=== PATIENT | male | born 1985 | race Caucasian/White ===

== ENCOUNTER 2019-03-14 12:59 | Emergency (ER) | payer SELFPAY ==
--- NOTE | ~2019-03-14 | XR_ITS ---
EXAMINATION: XR shoulder RT min 2V INDICATION: Right shoulder pain after fall TECHNIQUE: Four views of the right shoulder are submitted. COMPARISON: None FINDINGS: Normal alignment. No fracture. The glenohumeral joint is normal. There is mild separation a t the acromioclavicular joint. Soft tissues are unremarkable. IMPRESSION: Mild separation at the acromioclavicular joint without acute osseous abnormality. Reviewed, dictated and finalized at location A. [employer] IMPRESSION: Mild separation at the acromioclavicular joint without acute osseous abnormalit y.
[2019-03-14 13:02] VITALS: BP 145/64; PULSE 55; RESP 18; TEMP 36.6; O2SAT 100
--- NOTE | 2019-03-14 14:13 | ED.UPPEXIN ---
HPI - Extremity Injury (Upper) General Chief Complaint: Extremity Injury, Upper <Tyrone Fierro PA-C - Last Filed: 03/14/19 14:22> Stated Complaint: FELL WEDNESDAY - RT SHOULDER PAIN <KENIA Perez Last Filed: 03/14/19 14:22> Time Seen by Provider: 03/14/19 13:31 <Tyrone Fierro PA-C - Last Filed: 03/14/19 14:22> Source: patient <KENIA Perez Last Filed: 03/14/19 14:22> Mode of arrival: ambulatory <KENIA Perez Last Filed: 03/14/19 14:22> Limitations: no limitations <Tyrone Fierro PA-C - Last Filed: 03/14/19 14:22> History of Present Illness HPI narrative: Patient presents with chief complaint of anterior shoulder pain that presented on Wednesday after tripping and falling on stairs. Patient reports pain with abduction of his right shoulder. Patient denies prior fracture or injuries to the shoulder. Patient denies head impact, loss of consciousness or any other injuries. <Tyrone Fierro PA-C - Last Filed: 03/14/19 14:22> Related Data Home Medications: Home Medications Medication Instructions Recorded Confirmed No Home Medications 03/14/19 03/14/19 <Tyrone Fierro PA-C - Last Filed: 03/14/19 14:22> Allergies/Adverse Reactions: Allergies Allergy/AdvReac Type Severity Reaction Status Date / Time No Known Allergies Allergy Verified 03/14/19 13:04 <Tyrone Fierro PA-C - Last Filed: 03/14/19 14:22> Review of Systems Review of Systems: Narrative: CONSTITUTIONAL: Denies fever, chills, or sweats. EYES: Denies visual changes, redness, or discharge. ENT: Denies rhinorrhea, congestion, sore throat, or otalgia. CARDIOVASCULAR: Denies chest pain, palpitations, or edema. RESPIRATORY: Denies cough or dyspnea. GASTROINTESTINAL: Denies abdominal pain, nausea, vomiting, or diarrhea. GENITOURINARY: Denies dysuria or hematuria. SKIN: Denies rash or itching. MUSCULOSKELETAL: Reports right shoulder pain NEUROLOGIC: Denies headache, numbness, dizziness, or weakness. PSYCHIATRIC: Denies anxiety or depression. <Tyrone Fierro PA-C - Last Filed: 03/14/19 14:22> [facility] Past Medical History Medical History: Medical History (Updated 03/14/19 @ 14:20 by Tyrone Fierro PA-C) PTSD (post-traumatic stress disorder) <Tyrone Fierro PA-C - Last Filed: 03/14/19 14:22> Social History Social History: Social History (Updated 03/14/19 @ 14:14 by Tyrone Fierro PA-C) Smoking status: Current every day smoker Alcohol use details: none Substance use type: marijuana Other substance usage details: By prescription <Tyorne Fierro PA-C - Last Filed: 03/14/19 14:22> Exam Narrative: Exam Narrative: GENERAL: Well-appearing, well-nourished, and in no acute distress. HEAD: Normocephalic, atraumatic. EYES: PERRLA and EOMI. ENT: Nares clear, no rhinorrhea or epistaxis. Mucous membranes moist. Oropharynx without tonsillar hypertrophy exudate or other lesions. Bilateral TMs pearly morrissey nonbulging NECK: Supple. No adenopathy or masses. Range of motion intact. CHEST: Clear to auscultation. No respiratory distress. No wheezes rales or rhonchi HEART: Regular rate and rhythm. No murmur heard. Normal peripheral pulses. EXTREMITIES: Tenderness to the anterior shoulder at site of AC junction. Pain with abduction and rotation of shoulder internally and externally. No outward signs of ecchymosis, erythema. Mild swelling noted to the area. No loss of sensation or motor function to patient's elbow or hand. SKIN: Warm, dry, no rash. NEURO: No focal deficits. Alert and oriented x3. PSYCH: Normal mood and affect. <Tyrone Fierro PA-C - Last Filed: 03/14/19 14:22> Course Vital Signs Vital signs: Vital Signs Temperature 36.6 C 03/14/19 13:02 Pulse Rate 55 L 03/14/19 13:02 Respiratory Rate 18 03/14/19 13:02 Blood Pressure 145/64 H 03/14/19 13:02 Pulse Oximetry 100 03/14/19 13:02 Temperature 36.6 C 03/14/19 13:02
[2019-03-14 14:33] VITALS: BP 140/55; PULSE 56; RESP 18; O2SAT 100
== END 2019-03-14 14:34 | disposition home or self-care (01) ==
PROVIDERS: Emergency Provider Emergency Medicine
DX: S43.101A Unspecified dislocation of right acromioclavicular joint, initial encounter (principal); F17.200 Nicotine dependence, unspecified, uncomplicated; W10.9XXA Fall (on) (from) unspecified stairs and steps, initial encounter
CPT/HCPCS: 73030; 99283; A4565

== ENCOUNTER 2020-02-27 01:25 | Outpatient (CLI) | payer OTHER, SELFPAY ==
[2020-02-27 19:23] LABS: SARS-CoV-2 RNA PCR Negative
== END 2020-02-27 01:26 | disposition home or self-care (01) ==
LOC: ANHCOVIDDT 01:25
PROVIDERS: Visit Provider Otolaryngology
DX: Z01.812 Encounter for preprocedural laboratory examination (principal); Z20.822 Contact with and (suspected) exposure to COVID-19
CPT/HCPCS: C9803; U0003; U0005

== ENCOUNTER 2020-03-01 02:40 | Day surgery (SDC) | payer OTHER, SELFPAY ==
[2020-02-23 15:01] VITALS: BMI 25.7
--- NOTE | 2020-02-28 14:45 | PM.IMHP ---
H&P: HPI History of Present Illness Date/Time: 02/28/20 14:45 Chief Complaint: Facial lesion Narrative: Claudio Phelan is a 34 year old male Presents for planned surgical procedure. Reports no new symptoms or significant changes in medical history. Review of Systems Constitutional: Constitutional: Denies fatigue, Denies fever(s) and Denies lethargy Eyes: Eyes: Denies blurry vision and Denies change in vision ENT: Reports as per HPI Cardiovascular: Cardiovascular: Denies chest pain Respiratory: Respiratory: Denies cough Endocrine: Endocrine: Denies fatigue Hematologic/Lymphatic: Hematologic/Lymphatic: Denies easy bleeding, Denies easy bruising and Denies lymphadenopathy Allergic/Immunologic: Allergic/Immunologic: Denies seasonal rhinorrhea [facility] Past Medical History Medical History (Updated 02/05/20 @ 09:44 by Yariel Johnston MD) PTSD (post-traumatic stress disorder) Social History Social History (Updated 02/05/20 @ 09:29 by Edna Costello [facility]) Smoking status: Current every day smoker Tobacco type: cigarettes Second hand tobacco smoke exposure: Yes Additional smoking assessment comments: 1ppd x 18 years Alcohol intake: never Substance use: current Substance use type: marijuana Other substance usage details: daily usage,medical marijuana Spiritual care concerns: No Meds Home Medications and Allergies Home Medications Medication Instructions Recorded Confirmed Type No Home Medications 03/14/19 02/23/20 History Allergies Allergy/AdvReac Type Severity Reaction Status Date / Time No Known Allergies Allergy Verified 02/23/20 14:42 Exam Const: General: cooperative, healthy appearing, comfortable, well developed and alert HENMT: Head: normal to inspection, normocephalic and atraumatic Ears: hearing grossly normal bilaterally, external ears normal, TM's normal bilaterally and EAC's normal General nose exam: Normal external nose present, Normal nares present, No nasal polyps present, Normal nasal mucous membranes and turbinates present and Normal septum present Face and sinus: abnormal facial exam ( Right facial lesion just inferior to lip) Mouth: Yes Normal oral and palatal mucosa present, Yes lip normal, Yes tongue normal, Yes oropharynx normal and Yes moist mucous membranes Teeth and gingiva: dentition normal and gingiva normal Throat: posterior oropharynx normal, tonsils normal and uvula midline Eyes: General: appearance normal, both eyes and all related structures Periorbital: periorbital findings normal Eyelids: eyelids normal Conjunctivae: conjunctivae normal Sclera: sclerae normal Neck: Neck: normal visual inspection, full ROM and no lymphadenopathy Thyroid: thyroid normal Lymphatic: no lymphadenopathy noted Resp: Effort & Inspection: normal respiratory effort and able to speak in complete sentences Cardio: Jugular venous distension: no JVD Neuro: Cranial nerves: Yes CN's II-XII intact bilaterally Assessment and Plan Assessment and plan (1) Facial lesion: Code(s): L98.9 - Disorder of the skin and subcutaneous tissue, unspecified Status: Acute Assessment and Plan: The plan is for the OR for excision of facial lesion. The risks were discussed including changing cosmesis recurrence of cyst scar infection and bleeding. The patient voiced understanding of these risks and agreed to the procedure.
--- NOTE | 2020-03-01 07:01 | WPDHPUPDATE1 ---
History and Physical Update Update Date/Time: 03/01/20 07:01 History and Physical has been reviewed, including an updated exam of the patient. There are NO changes in the patient's condition. Risks, benefits, and alternatives have been discussed and questions answered. Patient agrees to proceed with procedure.
[2020-03-01 07:04] VITALS: BP 139/69; PULSE 72; RESP 14; TEMP 36.6; O2SAT 100
[2020-03-01] MEDS: LACTATED RINGERS 1,000 ML 30 ML IV CONT (07:50)
--- NOTE | 2020-03-01 08:35 | WPDANESEPPF ---
Anes - Initial Pre Proc Eval Procedure: Operation Date: 03/01/20 09:00 Proposed Procedures p Excision Lesion Right Face - Yariel Johnston MD Date/Time: 03/01/20 08:35 Surgeon: Yariel Johnston MD Pre Op Diagnosis: lesion right face Patient Data Age: 34 Gender: M Height: 5 ft 9 in Weight: 79.05 kg Last Vital Signs Temp 36.6 C 03/01/20 07:04 Pulse 72 03/01/20 07:04 Resp 14 03/01/20 07:04 BP 139/69 03/01/20 07:04 Pulse Ox 100 03/01/20 07:04 Allergies Allergy/AdvReac Type Severity Reaction Status Date / Time No Known Allergies Allergy Verified 03/01/20 07:25 Home Medications Medication Instructions Recorded Confirmed Type No Home Medications 03/14/19 03/01/20 History Patient hx anesthesia problems: none Family hx anesthesia problems: none PMFSH Past Medical History Medical History PTSD (post-traumatic stress disorder) Social History Social History Smoking status: Current every day smoker Tobacco type: cigarettes Second hand tobacco smoke exposure: Yes Additional smoking assessment comments: 1ppd x 18 years Alcohol intake: never Substance use: current Substance use type: marijuana Other substance usage details: daily usage,medical marijuana Living arrangements: alone Spiritual care concerns: No Anes - Eval Final PreProcedure Day of Procedure 03/01/20 08:35 Patient weight: normal Heart: regular rate and rhythm Lungs: clear to auscultation Airway: Mallampati scale class II Neurological: alert and oriented Last oral intake: >/= 8 hours ASA classification: II Emergent: no Anesthetic plan: proceed Anesthesia type and monitoring: general LMA and standard monitoring Informed Consent: The patient's anesthetic plan and its attendant risks and benefits were discussed with the patient/family/POA. Questions were solicited and answers provided to the satisfaction of the patient/family/POA.
[2020-03-01] MEDS: LIDO 1%/EPINEPHRINE 1:100,000 50 ML VIAL INFILTRATE (10:10)
[2020-03-01 10:36] VITALS: BP 117/70; PULSE 84; RESP 18; TEMP 36.3; O2SAT 100
[2020-03-01 10:50] VITALS: BP 118/68; PULSE 76; RESP 16; O2SAT 97
--- NOTE | 2020-03-01 10:53 | PM.PROC ---
Procedure Note - Detailed Date of procedure: 03/01/20 Pre-op diagnosis: lesion right face Post-op diagnosis: same Procedure performed: Excision of right facial lesion Description of procedure: The patient was correctly identified and consent was verified in the preoperative holding area. The patient was then brought to the operating room and a time-out performed. General anesthesia was induced and LMA was secured the patient's airway and taped to the left. The patient was then prepped and draped for the aforementioned procedure. 0.5 cc 1% lidocaine with 1 100,000 parts epinephrine was injected deep to a vertical 2 cm incision drawn over the lesion. A 15 blade was utilized to dissect down to the cyst wall. At this time it was obvious that this was a sebaceous or pilonidal cyst. The cyst was then dissected free from the underlying orbicularis auris using blunt dissection with sharp scissors. Small vessels were cauterized with bow with bipolar electrocautery at a setting of 5. The cyst capsule was removed in its entirety. The wound was then copiously irrigated with sterile normal saline. The deep layer was closed with interrupted 4 0 Vicryl sutures. The skin was closed with a running 5 0 fast gut suture. Antibiotic ointment was then applied. This marked the end of the procedure. I performed all dictated portions. Care the patient was turned over to Anesthesiology. Anesthesia: GLMA Surgeon: Yariel Johnston MD Estimated blood loss (mL): 5 Pathology: yes Complications: No immediate complications Condition: stable Disposition: PACU
[2020-03-01 11:00] VITALS: BP 123/69; PULSE 66; RESP 14; O2SAT 97
[2020-03-01 11:02] VITALS: BP 130/69; PULSE 56; RESP 14
[2020-03-01 11:32] VITALS: BP 120/73; PULSE 55; RESP 14
[2020-03-01] MEDS: oxyCODONE HCL (*CRX) 5 MG TAB IR PO (11:36)
== END 2020-03-01 11:45 | disposition home or self-care (01) ==
PROVIDERS: Visit Provider Otolaryngology
PROC: (CPT 11442; principal; 2020-03-01 09:00)
DX: L72.0 Epidermal cyst (principal); F43.10 Post-traumatic stress disorder, unspecified
CPT/HCPCS: 11442; 12051; 88304; 88305; A9270; C9803; J1100; J2250; J2405; J2704; J3010; J7120; U0003; U0005

== ENCOUNTER 2020-12-18 17:46 | Emergency (ER) | payer OTHER, SELFPAY ==
--- NOTE | ~2020-12-18 | XR_ITS ---
XR shoulder LT min 2V DATE: 12/18/2020 19:10 INDICATION: 8 foot fall from ladder. Left shoulder injury, pain TECHNIQUE: 4 views COMPARISON: None FINDINGS: No fracture or dislocation, periosteal reaction or bone destruction or abnormal soft tissue calcification. IMPRESSION: Negative Reviewed, dictated and finalized at location A. IMPRESSION: Negative
--- NOTE | ~2020-12-18 | XR_ITS ---
XR ribs LT 2V w CXR 2V DATE: 12/18/2020 19:09 INDICATION: Fall 8 foot from ladder yesterday. Left posterior pain. TECHNIQUE: PA and lateral chest. 3 views of left ribs. COMPARISON: None FINDINGS: Normal heart size. No hilar or mediastinal enlargement. The lungs are clear. No pleural eff usion or pulmonary vascular congestion or pneumothorax. No left rib fracture is detected. IMPRESSION: No evidence of left rib fracture No active cardiopulmonary disease Reviewed, dictated and finalized at location A.
--- NOTE | ~2020-12-18 | CT_ITS ---
EXAMINATION: CT thoracic spine wo con DATE: 12/18/2020 18:59 INDICATION: 8 foot fall from ladder. Posterior neck and back pain TECHNIQUE: Computed tomography (CT) of the thoracic spine was performed without intravenous contrast. Automated exposure control and iterative reconstruction technique were employed. Exam dose: 806.98 mGy-cm total exam DLP. COMPARISON: None FINDINGS: Multiple Schmorl's nodes are identified. No fracture or dislocation or bone destruction of the thoracic spine is detected. Small lower pole right renal nonobstructing calculus is incidentally noted.. IMPRESSION: No thoracic spine fracture is detected Reviewed, dictated and finalized at Location A. Reviewed, dictated and finalized at location A.
--- NOTE | ~2020-12-18 | CT_ITS ---
EXAMINATION: CT cervical spine wo con DATE: 12/18/2020 18:58 INDICATION: 8 foot fall from ladder. Neck and back pain. TECHNIQUE: Computed tomography (CT) of the cervical spine was performed without intravenous contrast. Automated exposure control and iterative reconstruction technique were employed. Exam dose: 407.25 mGy-cm total exam DLP. COMPARISON: None FINDINGS: There is straightening and mild reversal of cervical curvature which may be due to position ing and/or muscle spasm. No fracture or dislocation or locked facet. C1 and C2 are normally aligned and the odontoid process i s intact. No prevertebral soft tissue swelling. Cervical interspaces are relatively preserved.. IMPRESSION: Straightening and mild reversal cervical curvature; otherwise no significant abnormality Reviewed, dictated and finalized at Location A. Reviewed, dictated and finalized at location A. IMPRESSION: Straightening and mild reversal cervical curvature; otherwise no s ignificant abnormality
[2020-12-18 18:27] VITALS: BP 143/68; PULSE 75; RESP 16; TEMP 36.6; O2SAT 98
--- NOTE | 2020-12-18 18:45 | ED.FALL ---
HPI - Fall General Chief Complaint: Fall Stated Complaint: neck and back pain s/p fall Time Seen by Provider: 12/18/20 18:31 Source: patient Mode of arrival: ambulatory Limitations: no limitations History of Present Illness HPI Narrative: This is a 35 year old male that presents to the ER after a fall yesterday with neck and back pain. Reports he fell off the top step of an 8 foot ladder. Reports landing on his left shoulder. Reports since he has had worsening neck, back, and left shoulder pain. Denies hitting his head or loss of consciousness. Denies vision changes, vomiting, numbness or weakness. Related Data Allergies Allergy/AdvReac Type Severity Reaction Status Date / Time No Known Allergies Allergy Verified 03/01/20 07:25 Review of Systems Review of Systems: CONSTITUTIONAL: Denies fever EYES: Denies visual changes RESPIRATORY: Denies dyspnea. GASTROINTESTINAL: Denies vomiting MUSCULOSKELETAL: Reports back pain, joint pain, and myalgia. NEUROLOGIC: Denies headache, numbness, or weakness. All systems reviewed & are unremarkable except as noted in HPI and below PMFSH Past Medical History Medical History PTSD (post-traumatic stress disorder) Social History Social History Smoking status: Current every day smoker Tobacco type: cigarettes Second hand tobacco smoke exposure: Yes Additional smoking assessment comments: 1ppd x 18 years Alcohol intake: never Alcohol use details: none Substance use: current Substance use type: marijuana Other substance usage details: daily usage,medical marijuana Spiritual care concerns: No Exam Narrative: GENERAL: Well-appearing, well-nourished, and in no acute distress. HEAD: Normocephalic, atraumatic. EYES: PERRLA and EOMI. ENT: Nares clear, no rhinorrhea or epistaxis. Mucous membranes moist. Oropharynx without tonsillar hypertrophy exudate or other lesions. Bilateral TMs pearly morrissey non-bulging NECK: Supple. No adenopathy or masses. Tender to palpation of midline cervical spine CHEST: Clear to auscultation. No respiratory distress. No wheezes rales or rhonchi HEART: Regular rate and rhythm. No murmur heard. Normal peripheral pulses. BACK: Tender to palpation of midline thoracic spine. No midline lumbar spine tenderness EXTREMITIES: Normal range of motion. No edema. SKIN: Warm, dry, no rash. NEURO: No focal deficits. Alert and oriented x3. PSYCH: Normal mood and affect Course Vital Signs Vital signs: Vital Signs Temperature 97.8 F 12/18/20 18:27 Pulse Rate 75 12/18/20 18:27 Respiratory Rate 16 12/18/20 18:27 Blood Pressure 143/68 H 12/18/20 18:27 Pulse Oximetry 98 12/18/20 18:27 Temperature 97.8 F 12/18/20 18:27 Pulse Rate 75 12/18/20 18:27 Respiratory Rate 16 12/18/20 18:27 Blood Pressure 143/68 H 12/18/20 18:27 Pulse Oximetry 98 12/18/20 18:27 MDM - Fall MDM Narrative Medical decision making narrative: Patient presents to the ER after a fall off a ladder yesterday. Denies hitting his head or loss of consciousness. He is neurologically intact. CT scan of the thoracic and lumbar spine is without acute findings. Left shoulder x-ray and left rib/chest x-ray also without acute findings. Patient was updated on case findings. He was instructed to rest, ice and take [id number] pain medication as needed. Will be prescribed muscle relaxer as needed for pain. He is to follow-up with primary care doctor. He was given warnings to return to the ER Imaging Data Radiologist's impression: ITS Impressions Cervical Spine CT 12/18/20 19:21 IMPRESSION: Straightening and mild reversal cervical curvature; otherwise no significant abnormality Thoracic Spine CT 12/18/20 19:27 IMPRESSION: No thoracic spine fracture is detected Shoulder X-Ray 12/18/20 19:41 IMPRESSION: Negative Rib
[2020-12-18] MEDS: HYDROcodone/acetaminophen (*CRX) 5-325 MG TABLET 1 TAB PO (19:33)
[2020-12-18 20:30] VITALS: RESP 16
== END 2020-12-18 20:30 | disposition home or self-care (01) ==
PROVIDERS: Emergency Provider Emergency Medicine
DX: S16.1XXA Strain of muscle, fascia and tendon at neck level, initial encounter (principal); F17.210 Nicotine dependence, cigarettes, uncomplicated; W11.XXXA Fall on and from ladder, initial encounter
CPT/HCPCS: 71046; 71100; 72125; 72128; 73030; 99284; A9270

== ENCOUNTER 2022-04-16 23:37 | Emergency (ER) | payer OTHER, SELFPAY ==
[2022-04-17 00:15] VITALS: BP 130/79; PULSE 68; RESP 20; TEMP 36.5; O2SAT 99
== END 2022-04-17 03:46 | disposition left against medical advice (07) ==
DX: Z53.21 Procedure and treatment not carried out due to patient leaving prior to being seen by health care provider (principal)
CPT/HCPCS: 99199

== ENCOUNTER 2023-05-02 21:28 | Emergency (ER) | payer SELFPAY ==
[2023-05-02 21:30] VITALS: BP 116/77; PULSE 57; RESP 18; TEMP 36.1; O2SAT 100
[2023-05-02 22:16] VITALS: BP 131/71; PULSE 62; RESP 18; TEMP 36.6; O2SAT 98
--- NOTE | 2023-05-02 22:53 | ED.GENADULT ---
HPI - General Adult General Chief complaint: Eye Problems Stated complaint: R eye pain Time Seen by Provider: 05/02/23 22:10 History of Present Illness HPI narrative: Patient 37-year-old gentleman who presents emergency department with chief complaint of possible foreign body right eye. 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 Related Data Allergies Allergy/AdvReac Type Severity Reaction Status Date / Time No Known Allergies Allergy Verified 03/01/20 07:25 Review of Systems Review of Systems: A 10 system review of systems was completed on the patient and is negative except for what is stated in the HPI. Nursing and ancillary documentation was reviewed. [facility] Past Medical History Medical History PTSD (post-traumatic stress disorder) Social History Social History Smoking status: Current every day smoker Tobacco type: cigarettes Second hand tobacco smoke exposure: Yes Additional smoking assessment comments: 1ppd x 18 years Alcohol intake: never Alcohol use details: none Substance use: current Substance use type: marijuana Other substance usage details: daily usage,medical marijuana Living arrangements: alone Spiritual care concerns: No Exam Narrative: GENERAL: Well-appearing, well-nourished, and in no acute distress. HEAD: Normocephalic, atraumatic. EYES: PERRLA and EOMI. Foreign body present at the 4 o'clock position interocular pressure 11 ENT: Nares clear, no rhinorrhea or epistaxis. Mucous membranes moist. NECK: Supple. CHEST: Clear to auscultation. No respiratory distress. HEART: Regular rate and rhythm. No murmur heard. Normal peripheral pulses. ABDOMEN: Soft, nontender, nondistended, normal active bowel sounds. EXTREMITIES: Normal range of motion. No edema. SKIN: Warm, dry, no rash. NEURO: No focal deficits. Alert and oriented x3. PSYCH: Normal mood and affect. Course Vital Signs Vital signs: Vital Signs Temperature 36.1 C L 05/02/23 21:30 Pulse Rate 57 L 05/02/23 21:30 Respiratory Rate 18 05/02/23 21:30 Blood Pressure 116/77 05/02/23 21:30 Pulse Oximetry 100 05/02/23 21:30 Oxygen Delivery Room Air 05/02/23 21:30 Temperature 36.6 C 05/02/23 22:16 Pulse Rate 62 05/02/23 22:16 Respiratory Rate 18 05/02/23 22:16 Blood Pressure 131/71 05/02/23 22:16 Pulse Oximetry 98 05/02/23 22:16 Oxygen Delivery Room Air 05/02/23 21:30 Procedures FB Removal Eye Foreign Body #1: Foreign Body Removal Date: 05/02/23 Foreign Body Removal Time: 22:53 Time Out performed: Yes Location: eye (R) Topical anesthetic used: tetracaine Foreign body: wood Evidence of corneal penetration: No Technique: cotton tip swab and needle Procedure performed under: direct visualization with magnification Post-procedure medication: ophthalmic antibiotic and topical anesthetic Patient tolerated procedure: well Medical Decision Making MDM Narrative Medical decision making narrative: Differential diagnosis includes corneal foreign body, corneal abrasion, acute angle closure glaucoma, conjunctivitis Patient was found to have a corneal foreign body on exam foreign body was removed using a tuberculin syringe. The patient was started on topical antibiotics and will be referred to Ophthalmology Vital Signs Vital Signs: Vital Signs Temperature 36.1 C L 05/02/23 21:30 Pulse Rate 57 L 05/02/23 21:30 Respiratory Rate 18 05/02/23 21:30 Blood Pressure 116/77 05/02/23
== END 2023-05-02 23:11 | disposition home or self-care (01) ==
LOC: ANHED 23:01
PROVIDERS: Emergency Provider Emergency Medicine
DX: T15.01XA Foreign body in cornea, right eye, initial encounter (principal); F17.210 Nicotine dependence, cigarettes, uncomplicated; W44.F9XA Other object of natural or organic material, entering into or through a natural orifice, initial encounter
CPT/HCPCS: 65220; 99283

== ENCOUNTER 2023-05-06 06:45 | Emergency (ER) | payer SELFPAY ==
[2023-05-06 06:53] VITALS: BP 164/87; PULSE 86; RESP 16; TEMP 37.1; O2SAT 100
--- NOTE | 2023-05-06 07:15 | PC.NURSE ---
Report to AGUSTÍN Flores. Pt awaiting ERP eval.
[2023-05-06] MEDS: TETRACAINE HCL 0.5% OPHTH SOLN 4 ML BTL RIGHT EYE (07:57)
[2023-05-06] MEDS: HYDROcodone/acetaminophen (*CRX) 5-325 MG TABLET 1 TAB PO (07:57)
[2023-05-06] MEDS: FLUORESCEIN SOD 1 MG/STRIP RIGHT EYE (07:57)
--- NOTE | 2023-05-06 08:30 | ED.EYEPROB ---
HPI - Eye Problem General Chief complaint: Eye Problems Stated complaint: right eye pain Time Seen by Provider: 05/06/23 07:00 History of Present Illness HPI Narrative: Patient is a 37-year-old male who presents ER with right eye pain. He was seen on 05/02/2023 after having something in his eye for 2 days. At that time bloody foreign body was removed and he was placed on topical antibiotics. Patient feels like he was improving since that visit until this morning when he woke up with severe pain in his right eye. He has blurred vision as well as sensitivity to light. He has increased tearing. Denies any additional trauma to the eye. She endorses compliance with the antibiotic regimen. He did not follow-up with Ophthalmology. Related Data Allergies Allergy/AdvReac Type Severity Reaction Status Date / Time No Known Allergies Allergy Verified 03/01/20 07:25 Review of Systems Review of Systems: All systems reviewed & are unremarkable except as noted in HPI and below Constitutional: Constitutional: Reports no additional constitutional complaints Eyes: Eyes: Reports irritation, Reports eye pain, Reports photophobia and Reports other (Tearing) ENT: Reports system reviewed and no additional complaints, except as documented PMFSH Past Medical History Medical History PTSD (post-traumatic stress disorder) Social History Social History Smoking status: Current every day smoker Tobacco type: cigarettes Second hand tobacco smoke exposure: Yes Additional smoking assessment comments: 1ppd x 18 years Alcohol intake: never Alcohol use details: none Substance use: current Substance use type: marijuana Other substance usage details: daily usage,medical marijuana Living arrangements: alone Spiritual care concerns: No Exam Narrative: GENERAL: Uncomfortable-appearing, well-nourished, and in no acute distress. HEAD: Normocephalic, atraumatic. EYES: PERRLA and EOMI. Right eye with scleral injection, when viewed with fluorecin and magnification with slit lamp, a central corneal abrasion is noted with 2 small brown dots the likely represent rust in the are not felt to be retained would be foreign body. Visual acuity unable to be performed on right eye due to photophobia and tearing. Left eye with 20/20 vision uncorrected. ENT: Mucous membranes moist. EXTREMITIES: Normal range of motion. No edema. NEURO: Alert and oriented x3. PSYCH: Normal mood and affect. Course Course Emergency Course: I have discussed the case with Dr. Johnson with ophthalmology at [facility]. He recommends the patient be transferred to the ER for further evaluation. Dr. Carrillo Aly accepted the patient to the ER. Patient and significant other been educated about treatment plan and need for specialty referral and have verbalized understanding. Patient did receive tetracaine and oral Lucile in the ER. Vital Signs Vital signs: Vital Signs Temperature 98.7 F 05/06/23 06:53 Pulse Rate 86 05/06/23 06:53 Respiratory Rate 16 05/06/23 06:53 Blood Pressure 164/87 H 05/06/23 06:53 Pulse Oximetry 100 05/06/23 06:53 Oxygen Delivery Room Air 05/06/23 06:53 Temperature 98.7 F 05/06/23 06:53 Pulse Rate 86 05/06/23 06:53 Respiratory Rate 16 05/06/23 06:53 Blood Pressure 164/87 H 05/06/23 06:53 Pulse Oximetry 100 05/06/23 06:53 Oxygen Delivery Room Air 05/06/23 06:53 Discharge Plan Discharge Clinical Impression: Abrasion, corneal, Photophobia Patient Disposition: Acute Care Hospital Condition: Stable Prescriptions: No Action cyclobenzaprine 10 mg tablet 10 mg PO TID PRN (Reason: muscle spasm) Qty: 10 0RF polymyxin B sulf-trimethoprim 10,000 unit- 1 mg/mL drops 1 drp EACH EYE Q3H 7 Days Qty: 10 0RF Rx Instructions: while awake; do not exceed 6 doses i
== END 2023-05-06 09:12 | disposition short-term general hospital (02) ==
PROVIDERS: Emergency Provider Emergency Medicine
DX: S05.01XA Injury of conjunctiva and corneal abrasion without foreign body, right eye, initial encounter (principal); H53.141 Visual discomfort, right eye; F17.210 Nicotine dependence, cigarettes, uncomplicated; X58.XXXA Exposure to other specified factors, initial encounter
CPT/HCPCS: 99283; A9270

== ENCOUNTER 2024-01-20 12:51 | Emergency (ER) | payer SELFPAY ==
--- NOTE | ~2024-01-20 | CT_ITS ---
EXAMINATION: CTA chest PE protocol DATE: 01/20/2024 16:59 INDICATION: Cough and shortness of breath. TECHNIQUE: Computed tomography angiography (CTA) of the chest was performed with 100 mL Omnipaque-350 intravenous contrast timed to evaluate the pulmonary arteries. Coronal maximum intensity projection 3D-reconstructions were created by the technologist. Automated exposure control and iterative reconst ruction technique were employed. The dose-length product was 285.41 mGy-cm. COMPARISON: None. FINDINGS: There are tree-in-bud opacities and centrilobular nodules in all lobes. There are airspace opacities in left lower lobe. These findings are consistent with pneumonia. No pleural effusion. The heart size is normal. No pericardial effusion. There is no pulmonary embolus. There is mild thoracic spondylosis. There is mild chronic anterior wedging of multiple vertebral bodies. IMPRESSION: 1. No pulmonary embolus. 2. Bilateral pneumonia with a lower lung predominance. Reviewed, dictated and finalized at location A. ERN SETTER
--- NOTE | ~2024-01-20 | CT_ITS ---
EXAMINATION: CT brain wo con DATE: 01/20/2024 13:53 INDICATION: Syncope. TECHNIQUE: Computed tomography (CT) of the head was performed without intravenous contrast. The mA wa s adjusted according to patient size. Iterative reconstruction technique was employed. The dose-lengt h product was 605.33 mGy-cm. COMPARISON: None FINDINGS: There is no intracranial hemorrhage, acute infarction, or abnormal intracranial mass lesion . The ventricles are normal in size. There is mucosal thickening in the paranasal sinuses. The orbits are normal. The mastoid air cells are normal. IMPRESSION: 1. Normal brain. Reviewed, dictated and finalized at location A. HICS SOFTWARE ENGINEER IMPRESSION: 1. Normal brain.
--- NOTE | ~2024-01-20 | XR_ITS ---
EXAMINATION: XR chest 2V 01/20/2024 13:56 INDICATION: Shortness of breath, cough and fever PROCEDURE: 2 view chest COMPARISON: 12/18/2020 FINDINGS: The lungs are clear. The cardiomediastinal silhouette is within normal limits. There are no pleural effusions. There is no pneumothorax suspected. IMPRESSION: 1: NO ACUTE CARDIOPULMONARY DISEASE. Reviewed, dictated and finalized at location B. E LAWYER
[2024-01-20 13:33] VITALS: BP 115/64; PULSE 86; RESP 18; TEMP 36.2; O2SAT 97
--- NOTE | 2024-01-20 13:37 | ED.GENADULT ---
HPI - General Adult General Chief complaint: Unspecified Stated complaint: sick fo two weeks Time Seen by Provider: 01/20/24 13:37 Source: patient Mode of arrival: ambulatory Limitations: no limitations History of Present Illness HPI narrative: Patient is a 38 y/o male who presents to the ED with multiple complaints. Patient reports he has been sick for 3 weeks with multiple symptoms. He states the 1st week he had persistent fevers, headaches, decreased appetite, abd pain, N/V, body aches. He currently complains of persistent headache, persistent cough, trouble sleeping, intermittent upper abdominal pain, intermittent sharp R sided pleuritic pain, shortness of breath. Also notes he nearly passed out twice yesterday at work and at home. States he was feeling dizzy/ woozy prior to when he had these episodes. Denies any dizziness/lightheadedness currently. Denies focal weakness or numbness. Denies sick contacts. Related Data Allergies Allergy/AdvReac Type Severity Reaction Status Date / Time No Known Allergies Allergy Verified 03/01/20 07:25 Review of Systems Review of Systems: All systems reviewed & are unremarkable except as noted in HPI. All systems reviewed & are unremarkable except as noted in HPI and below PMFSH Past Medical History Medical History PTSD (post-traumatic stress disorder) Social History Social History Smoking status: Current every day smoker Tobacco type: cigarettes Second hand tobacco smoke exposure: Yes Additional smoking assessment comments: 1ppd x 18 years Alcohol intake: never Alcohol use details: none Substance use: current Substance use type: marijuana Other substance usage details: daily usage,medical marijuana Living arrangements: alone Spiritual care concerns: No Exam Narrative: GENERAL: Well-appearing, well-nourished, and in no acute distress. HEAD: Normocephalic, atraumatic. CHEST: Airway patent. No tachypnea. Respirations nonlabored. No respiratory distress. Mild rhonchi in L lower lung zone HEART: Regular rate and rhythm.? MSK: No gross deformities. Moves all extremities. NEURO: ?Alert and oriented x3. No focal deficits. Speech clear. No pronator drift. 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 PSYCHIATRIC: Normal mood and affect. Normal interaction. Course Vital Signs Vital signs: Vital Signs Temperature 97.1 F L 01/20/24 13:33 Pulse Rate 86 01/20/24 13:33 Respiratory Rate 18 01/20/24 13:33 Blood Pressure 115/64 01/20/24 13:33 Pulse Oximetry 97 01/20/24 13:33 Oxygen Delivery Room Air 01/20/24 13:33 Temperature 97.1 F L 01/20/24 13:33 Pulse Rate 86 01/20/24 13:33 Respiratory Rate 18 01/20/24 13:33 Blood Pressure 115/64 01/20/24 13:33 Pulse Oximetry 97 01/20/24 13:33 Oxygen Delivery Room Air 01/20/24 13:33 Medical Decision Making MDM Narrative Medical decision making narrative: MSE by ZAIDA in triage. Care resumed by myself. Patient presented to ED with 3 week history of URI symptoms, intermittent fevers, body aches, headaches, shortness of breath. Vital signs are stable upon arrival. Patient is in no acute distress. Mild rhonchi heard throughout left lower lung zone. CBC with white blood cell count of 13.5. Stable H& H. CMP unremarkable. Stable electrolytes. Stable kidney function. Viral swabs are negative. EKG nonischemic. Troponin undetectable. D-dimer did result mildly elevated. Chest x-ray was initially clear. CTA of chest showed no evidence of PE, did show bilateral lower lobe pneumonia. Consistent with clinical picture. CT brain was obtained due to near syncopal episode, and negative. Patient is neurovascularly intact. Discussed lab and imaging findings with patient, diagnosis of pneumonia. Feel he is safe for discharge home on antibiotics with close outpatient follow-up. No criteria to require admission to hospital at this time. Recommended close follow-up with PCP for further evaluation, given strict return precautions. Patient is in agreement with plan and feels comfortable discharge home. Discharged in stable condition. Vital signs stable at time of D/C. Medical Records Medical records reviewed: Yes I reviewed the external patient's medical records. Vital Signs Vital Signs: Vital Signs Temperature 97.1 F L 01/20/24 13:33 Pulse Rate 86 01/20/24 13:33 Respiratory Rate 18 01/20/24 13:33 Blood Pressure 115/64 01/20/24 13:33 Pulse Oximetry 97 01/20/24 13:33 Oxygen Delivery Room Air 01/20/24 13:33 Temperature 97.1 F L 01/20/24 13:33 Pulse Rate 86 01/20/24 13:33 Respiratory Rate 18 01/20/24 13:33 Blood Pressure 115/64 01/20/24 13:33 Pulse Oximetry 97 01/20/24 13:33 Oxygen Delivery Room Air 01/20/24 13:33 Lab Data Lab results reviewed: Yes I reviewed the patient's lab results. 01/20/24 14:44 01/20/24 14:43 Labs: Lab Results 01/20/24 01/20/24 Range/Units 14:43 14:44 WBC 13.5 H (4.5-10.0) K/mm3 RBC 4.50 L (4.6-6.20) M/mm3 Hgb 13.9 L (14.0-18.0) g/dL Hct 41.6 L (42.0-52.0) % MCV 92.4 (80-100) fl MCH 30.9 (26-34) pg MCHC 33.4 (32-36) g/dl RDW 12.0 (11.5-14.5) % Plt Count 463 H (150-375) k/mm3 MPV 9.1 (7.4-10.4) fl Immature Gran % (Auto) 0.5 (0-0.5) % Neut % (Auto) 66.3 (45.5-73.1) % Lymph % (Auto) 20.3 (18.3-44.2) % Garden % (Auto) 10.7 H (2.6-8.5) % Eos % (Auto) 1.6 (0-4.4) % Baso % (Auto) 0.6 (0.2-1.2) % Lymph # (Auto) 2.74 (0.9-3.2) K/mm3 Garden # (Auto) 1.4 H (0.1-0.6) K/mm3 Eos # (Auto) 0.2 (0-0.3) K/mm3 Baso # (Auto) 0.1 (0.0-0.1) K/mm3 Abs Immat Gran (auto) 0.07 H (0.00-0.031) K/mm3 Absolute Neuts (auto) 8.9 H (1.3-6.7) K/mm3 Absolute Nucleated RBC 0.000 (0.0-0.012) K/mm3 Nucleated RBC % 0.0 (0.0-0.2) % PT 15.0 H (11.1-14.7) Seconds INR 1.1 APTT 36.0 (22.3-36.8) Seconds D-Dimer 0.64 H (<0.48) ug/mL Sodium 142 (137-145) mmol/L Potassium 4.5 (3.4-5.0) mmol/L Chloride 104 (98-107) mmol/L Carbon Dioxide 33 H (22-30) mmol/L Anion Gap 5 (4-12) mmol/L BUN 9 (9-20) mg/dL Creatinine 0.80 (0.7-1.3) mg/dL Estim Creat Clear Calc 115 ml/min Estimated GFR > 60 (59 - ) Glucose 98 (65-110) mg/dL Calcium 9.2 (8.4-10.2) mg/dL Magnesium 2.5 H (1.6-2.3) mg/dL Total Bilirubin 0.6 (0.2-1.3) mg/dL AST 28 (17-59) U/L ALT 15 (6-50) U/L Alkaline Phosphatase 62 (38-126) U/L Troponin I < 0.012 (0.000-0.034) ng/mL Total Protein 8.0 (6.3-8.2) g/dL Albumin 4.2 (3.5-5.1) g/dL Influenza A (RT-PCR) Negative (Negative) Influenza B (RT-PCR) Negative (Negative) RSV (RT-PCR) Negative (Negative) SARS-CoV-2 RNA (RT-PCR) Negative (Negative) Imaging Data Attestation: I personally reviewed and interpreted this imaging study as follows: Radiologist's impression: ITS Impressions Head CT 01/20/24 13:53 IMPRESSION: 1. Normal brain. Chest X-Ray 01/20/24 13:58 IMPRESSION: 1: NO ACUTE CARDIOPULMONARY DISEASE. Chest CTA 01/20/24 17:06 IMPRESSION: 1. No pulmonary embolus. 2. Bilateral pneumonia with a lower lung predominance. Discharge Plan Discharge Clinical Impression: Pneumonia Qualifiers: Pneumonia type: due to unspecified organism Laterality: bilateral Lung location: lower lobe of lung Qualified Code(s): J18.9 - Pneumonia, unspecified organism Patient Disposition: Home, Self-Care Condition: Stable Instructions: Antibiotic Form, Viral Syndrome (ED), Pneumonia (ED) Additional Instructions: You were diagnosed with pneumonia today. Take both antibiotics as prescribed. It is important you finish both courses. Stay well-hydrated at home. Recommend electrolyte rich fluids, Gatorade, Pedialyte, body armor. Zofran as needed for nausea. Utilize Tessalon Perles as needed for cough. Utilize Tylenol and Ibuprofen for discomfort and/or fevers. Recommend rluc-ibs-mejslzq cough and cold medicines for symptom relief, Delsym, Mucinex, DayQuil, NyQuil, Sudafed, Robitussin, TheraFlu. Follow with primary care doctor for further evaluation. Return to the ED if you experience worsening or severe symptoms, chest pain, worsening difficulty breathing, unable to keep down food or drink, severe pain, persistent fevers, coughing blood, or any other symptoms of concern. Prescriptions: New azithromycin [Zithromax Z-Quincy] 250 mg tablet See Rx Instructions .ROUTE .COMPLEX Qty: 6 0RF Rx Instructions: For 250 mg dose pack: take 500 mg today (day 1), then 250 mg for 4 days (days 2-5) amoxicillin-pot clavulanate 875-125 mg tablet 1 tablet PO Q12H 7 Days Qty: 14 0RF benzonatate 200 mg capsule 200 mg PO TID PRN (Reason: cough) Qty: 15 0RF ondansetron 4 mg tablet,disintegrating 4 mg PO Q8H PRN (Reason: nausea and vomiting) Qty: 15 0RF No Action cyclobenzaprine 10 mg tablet 10 mg PO TID PRN (Reason: muscle spasm) Qty: 10 0RF polymyxin B sulf-trimethoprim 10,000 unit- 1 mg/mL drops 1 drp EACH EYE Q3H 7 Days Qty: 10 0RF Rx Instructions: while awake; do not exceed 6 doses in 24 hours Follow-up/Referrals: Zaira Sutton DO [Physician] - (PRIMARY CARE) UNKNOWN,DOCTOR [Primary Care Provider] - Time of Disposition: 18:10
[2024-01-20] MEDS: FAMOTIDINE 20 MG/2 ML VIAL IV PUSH (14:48)
[2024-01-20 14:52] LABS: Basophils Absolute Auto 0.1 K/mm3 (0.0-0.1); Basophils Percent Auto 0.6 % (0.2-1.2); Eosinophils Absolute Auto 0.2 K/mm3 (0-0.3); Eosinophils Percent Auto 1.6 % (0-4.4); Hematocrit 41.6 % (42.0-52.0); Hemoglobin 13.9 g/dL (14.0-18.0); Immature Granulocyte Absolute 0.07 K/mm3 (0.00-0.031); Immature Granulocyte Percent A 0.5 % (0-0.5); Lymphocytes Absolute Auto 2.74 K/mm3 (0.9-3.2); Lymphocytes Percent Auto 20.3 % (18.3-44.2); Mean Corpuscular HGB Conc 33.4 g/dl (32-36); Mean Corpuscular Hemoglobin 30.9 pg (26-34); Mean Corpuscular Volume 92.4 fl (80-100); Mean Platelet Volume 9.1 fl (7.4-10.4); Monocytes Absolute Auto 1.4 K/mm3 (0.1-0.6); Monocytes Percent Auto 10.7 % (2.6-8.5); Neutrophils Absolute Auto 8.9 K/mm3 (1.3-6.7); Neutrophils Percent Auto 66.3 % (45.5-73.1); Platelet Count Result 463 k/mm3 (150-375); White Blood Count 13.5 K/mm3 (4.5-10.0)
[2024-01-20 15:04] LABS: Alanine Aminotransferase 15 U/L (6-50); Albumin Level 4.2 g/dL (3.5-5.1); Alkaline Phosphatase 62 U/L (38-126); Anion Gap 5 mmol/L (4-12); Aspartate Amino Transferase 28 U/L (17-59); Bilirubin,Total 0.6 mg/dL (0.2-1.3); Blood Urea Nitrogen 9 mg/dL (9-20); Calcium 9.2 mg/dL (8.4-10.2); Carbon Dioxide 33 mmol/L (22-30); Chloride 104 mmol/L (98-107); Estimated CRCL calculation 115 ml/min; Estimated Glomerular Filt Rate > 60; Glucose 98 mg/dL (65-110); Magnesium 2.5 mg/dL (1.6-2.3); Potassium 4.5 mmol/L (3.4-5.0); Sodium 142 mmol/L (137-145)
[2024-01-20 15:07] LABS: INR 1.1
[2024-01-20 15:17] LABS: D Dimer 0.64 ug/mL (<0.48)
[2024-01-20 15:28] LABS: Influenza A QL RT-PCR Negative (Negative); Influenza B QL RT-PCR Negative (Negative); RSV RNA, RT-PCR Negative (Negative); SARS-CoV-2 RNA PCR Negative (Negative)
[2024-01-20 18:14] LABS: Troponin I < 0.012 ng/mL (0.000-0.034)
[2024-01-20 18:28] VITALS: BP 114/85; PULSE 73; RESP 14; RESP 18; TEMP 36.8; O2SAT 97; O2SAT 99
== END 2024-01-20 18:31 | disposition home or self-care (01) ==
PROVIDERS: Emergency Provider Physician Assistant
DX: J18.9 Pneumonia, unspecified organism (principal); F17.210 Nicotine dependence, cigarettes, uncomplicated; Z20.822 Contact with and (suspected) exposure to COVID-19
CPT/HCPCS: 36415; 70450; 71046; 71275; 80053; 83735; 84484; 85025; 85380; 85610; 85730; 87637; 96374; 99284; Q9967